=== PATIENT | male | born 1995 | race Caucasian/White ===

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

== ENCOUNTER 2017-12-03 23:55 | Observation (INO) | payer BC ==
[2017-12-04 00:30] LABS: ABS Basophils 0.1 10^3/ul (0-0.2); ABS Eosinophils 1.2 10^3/ul (0-0.6); ABS Lymphocytes 2.7 10^3/ul (1.0-4.8); ABS Monocytes 0.8 10^3/ul (0-0.8); ABS Neutrophils 8.4 10^3/ul (1.5-7.7); ABS Nucleated RBC 0 10^3/ul; Eosinophil % 9.1 % (0-6); Hematocrit 51 % (42-52); Hemoglobin 17.3 g/dl (14.0-18.0); Lymphocyte % 20.3 % (25-47); Mean Corpuscular HGB Conc 34 g/dl (31-36); Mean Corpuscular Hemoglobin 29 pg (27-31); Mean Corpuscular Volume 85 fL (80-94); Mean Platelet Volume 9 um3 (7.4-10.4); Nucleated Red Blood Cells % 0.1; Platelet Count 329 10^3/ul (150-450); Red Blood Count 5.92 10^6/ul (4.0-5.4); Red Cell Distribution Width 13 % (10.5-15); White Blood Count 13.2 10^3/ul (3.5-10.8)
[2017-12-04 00:46] LABS: EGFR Non-African American 83.6 (>60)
[2017-12-04] MEDS ORDERED: Insulin REGULAR(*) 1 UNITS UNIT IV PUSH ONE (01:30)
[2017-12-04] MEDS ORDERED: NS 0.9% 1000 ML* 2,000 ML IV ONE (01:32)
[2017-12-04] MEDS ORDERED: Metoclopramide IV* 5 MG/ML 2 ML VIAL IV SLOW PU ONE (01:37)
[2017-12-04] MEDS ORDERED: Morphine INJ* 4 MG/ML 1 ML SYRINGE (NEW SYRINGE VERSION) IV ONE (01:43)
[2017-12-04] MEDS ORDERED: Insulin REGULAR IVPB 100 UNITS/100 ML UNIT IVPB SCH ×3 (02:00→14:00)
[2017-12-04] MEDS ORDERED: D5W NS 0.9% 20Meq KCL 1000 ML* 1,000 ML IV SCH (02:45)
[2017-12-04 03:06] LABS: Urine Appearance Clear; Urine Blood Negative (Negative); Urine Color Yellow; Urine Ketones 2+ (Negative); Urine Protein Negative (Negative); Urine Specific Gravity 1.027 (1.010-1.030); Urine Urobilinogen Negative (Negative)
[2017-12-04] MEDS ORDERED: Iodixanol* (CONTRAST) 320 MG/ML 100 ML SDV IV ONE (03:17)
--- NOTE | 2017-12-04 05:31 | ED ---
Afsaneh Goldberg Thomas, scribed for Mary Almanza MD on 12/04/17 at 0149 . Complex/Multi-Sys Presentation - HPI Summary HPI Summary: The patient is a 22 year old male with a history of diabetes complaining of elevated blood sugar, nausea, vomiting, and RLQ abdominal pain that began yesterday at 20:00. He feels feverish. He is on sliding scale insulin. He was diagnosed with diabetes 10 years ago. - History Of Current Complaint Chief Complaint: EDAbdPain Time Seen by Provider: 12/04/17 01:32 Hx Obtained From: Patient Onset/Duration: Lasting Hours, Still Present Timing: Constant Severity Initially: Severe Location: Pain At: - RLQ Associated Signs And Symptoms: Positive: Abdominal Pain, Other - nausea, vomiting, RLQ pain, elevated blood sugar - Allergies/Home Medications Allergies/Adverse Reactions: Allergies Allergy/AdvReac Type Severity Reaction Status Date / Time Penicillins Allergy Rash Verified 12/04/17 00:01 PMH/Surg Hx/FS Hx/Imm Hx Endocrine/Hematology History: Reports: Hx Diabetes - TYPE I Sensory History: Denies: Hx Legally Blind EENT History: Denies: Hx Deafness Infectious Disease History: No Infectious Disease History: Denies: Traveled Outside the [place] in Last 30 Days - Family History Known Family History: Positive: Other - high cholesterol - dad Negative: Cardiac Disease, Hypertension - Social History Occupation: Student Alcohol Use: Rare Substance Use Type: Reports: None Smoking Status (MU): Never Smoked Tobacco Review of Systems Positive: Other - Patient feels feverish; Elevated blood glucose Positive: Abdominal Pain, Vomiting, Nausea All Other Systems Reviewed And Are Negative: Yes Physical Exam - Summary Physical Exam Summary: VITAL SIGNS: Reviewed. GENERAL: Patient is a well-developed and nourished male who is lying comfortable in the stretcher. Patient is not in any acute respiratory distress. HEAD AND FACE: No signs of trauma. No ecchymosis, hematomas or skull depressions. No sinus tenderness. EYES: PERRLA, EOMI x 2, No injected conjunctiva, no nystagmus. EARS: Hearing grossly intact. Ear canals and tympanic membranes are within normal limits. MOUTH: Oropharynx within normal limits. NECK: Supple, trachea is midline, no adenopathy, no JVD, no carotid bruit, no c- spine tenderness, neck with full ROM. CHEST: Symmetric, no tenderness at palpation LUNGS: Clear to auscultation bilaterally. No wheezing or crackles. CVS: Regular rate and rhythm, S1 and S2 present, no murmurs or gallops appreciated. ABDOMEN: Soft. Diffuse abdominal tenderness, especially in RUQ. No signs of distention. No rebound no guarding, and no masses palpated. Bowel sounds are normal. EXTREMITIES: FROM in all major joints, no edema, no cyanosis or clubbing. NEURO: Alert and oriented x 3. No acute neurological deficits. Speech is normal and follows commands. SKIN: Dry and warm Triage Information Reviewed: Yes Vital Signs On Initial Exam: Initial Vitals Temp Pulse Resp BP Pulse Ox 97.8 F 106 16 130/86 97 12/03/17 23:57 12/03/17 23:57 12/03/17 23:57 12/03/17 23:57 12/03/17 23:57 Vital Signs Reviewed: Yes Diagnostics - Vital Signs Vital Signs Temp Pulse Resp BP Pulse Ox 12/03/17 23:57 97.8 F 106 16 130/86 97 - Laboratory Lab Results: Lab Results 12/04/17 12/04/17 12/04/17 Range/Units 00:15 00:15 01:27 WBC 13.2 H (3.5-10.8) 10^3/ul RBC 5.92 H (4.0-5.4) 10^6/ul Hgb 17.3 (14.0-18.0) g/dl Hct 51 (42-52) % MCV 85 (80-94) fL MCH 29 (27-31) pg MCHC 34 (31-36) g/dl RDW 13 (10.5-15) % Plt Count 329 (150-450) 10^3/ul MPV 9 (7.4-10.4) um3 Neut % (Auto) 63.9 (38-83) % Lymph % (Auto) 20.3 L (25-47) % Freestone % (Auto) 6.2 (0-7) % Eos % (Auto) 9.1 H (0-6) % Baso % (Auto) 0.5 (0-2) % Absolute Neuts (auto) 8.4 H (1.5-7.7) 10^3/ul Absolute Lymphs (auto) 2.7 (1.0-4.8) 10^3/ul Absolute Monos (auto) 0.8 (0-0.8) 10^3/ul Absolute Eos (auto) 1.2 H (0-0.6) 10^3/ul Absolute Basos (auto) 0.1 (0-0.2) 10^3/ul Absolute Nucleated RBC 0 10^3/ul Nucleated RBC % 0.1 VBG pH 7.21 L (7.33-7.43) VBG pCO2 39 L (41-51) mmHg VBG pO2 20 L (35-45) mmHg VBG HCO3 13.7 L (24-28) mmol/L VBG O2 Saturation 38.8 L (70-80) % VBG Base Excess -11.6 L (0-4) Sodium 130 L (133-145) mmol/L Potassium 4.6 (3.5-5.0) mmol/L Chloride 93 L (101-111) mmol/L Carbon Dioxide 13 L* (22-32) mmol/L Anion Gap 24 H (2-11) mmol/L BUN 21 (6-24) mg/dL Creatinine 1.12 (0.67-1.17) mg/dL Est GFR ( Amer) 107.5 (>60) Est GFR (Non-Af Amer) 83.6 (>60) BUN/Creatinine Ratio 18.8 (8-20) Glucose 330 H (70-100) mg/dL Calcium 10.4 H (8.6-10.3) mg/dL Total Bilirubin 1.00 (0.2-1.0) mg/dL AST 18 (13-39) U/L ALT 12 (7-52) U/L Alkaline Phosphatase 223 H (34-104) U/L C-Reactive Protein 4.04 (< 5.00) mg/L Total Protein 8.7 (6.4-8.9) g/dL Albumin 5.1 (3.2-5.2) g/dL Globulin 3.6 (2-4) g/dL Albumin/Globulin Ratio 1.4 (1-3) Lipase < 10 L (11.0-82.0) U/L Result Diagrams: 12/04/17 00:15 12/04/17 00:15 Lab Statement: Any lab studies that have been ordered have been reviewed, and results considered in the medical decision making process. - Radiology CXR Xray Interpretation: No Acute Changes - No acute process. Pending final report. Radiology Interpretation Completed By: ED Physician - CT CT Abd/Pel CT Interpretation: No Acute Changes - There is no bowel obstruction, free air, or free fluid. Negative for diverticulitis or colitis. Normal appendix visualized. Normal kidneys urinary tracts and urinary bladder. Liver is somewhat fatty. Normal spleen. Normal pancreas. Normal adrenal glands. No obvious gallbladder abnormalities. Osseous structures are intact. No acute abnormalities are identified. Dr. Almanza has reviewed this report. CT Interpretation Completed By: Radiologist Re-Evaluation - Re-Evaluation First Eval Re-Evaluation Time: 05:23 Comment: Results discussed. Patient will be admitted. Complex Multi-Symp Course/Dx Assessment/Plan: The patient is a 22 year old male with a history of diabetes complaining of elevated blood sugar, nausea, vomiting, and RLQ abdominal pain that began yesterday at 20:00. In the ED course the patient was given insulin, Reglan, morphine, and IV fluids. Bloodwork and urinalysis were obtained. CXR shows no acute process. CT Abd/Pel shows There is no bowel obstruction, free air, or free fluid. Negative for diverticulitis or colitis. Normal appendix visualized. Normal kidneys urinary tracts and urinary bladder. Liver is somewhat fatty. Normal spleen. Normal pancreas. Normal adrenal glands. No obvious gallbladder abnormalities. Osseous structures are intact. No acute abnormalities are identified. The patient is diagnosed with DKA. Dr. Koo will admit the patient. - Diagnoses Provider Diagnoses: DKA (diabetic ketoacidoses) - Physician Notifications Discussed Care Of Patient With: Laila Koo Time Discussed With Above Provider: 05:24 Instructed by Provider To: Admit As Inpatient Discharge - Discharge Plan Condition: Fair Disposition: ADMITTED TO [facility] Referrals: [facility] - Joshua ZARATE [Primary Care Provider] - The documentation as recorded by the Afsaneh baraohna Thomas accurately reflects the service I personally performed and the decisions made by wa, Mary Almanza MD.
[2017-12-04 05:48] LABS: EGFR Non-African American 118.1 (>60)
[2017-12-04] MEDS ORDERED: Docusate CAP* 100 MG PO PRN (05:58)
[2017-12-04] MEDS ORDERED: Ondansetron INJ* 2 MG/ML VIAL IV PRN (05:58)
[2017-12-04] MEDS ORDERED: Acetaminophen TAB* 325 MG PO PRN (05:58)
[2017-12-04] MEDS ORDERED: Senna TAB PO PRN (05:58)
[2017-12-04] MEDS ORDERED: Al Hydrox/Mg Hydrox/Simet LIQ* 30 ML UDC PO PRN (05:58)
[2017-12-04] MEDS ORDERED: D5W 1/2 NS KCl 20 Meq 1000 ML* 1,000 ML IV SCH ×4 (07:00→12:16)
--- NOTE | 2017-12-04 08:07 | PN ---
Hospitalist Progress Note Date of Service: 12/04/17 I have seen and examined Mr. Quevedo and will assume his care today. He is feeling much better, abdominal pain is improving, no nausea. On exam, he has been afebrile, normotensive, HR in the 70s Sleepy but arouses to voice and answers my questions appropriately. dry mucosa , no lesions or erythema. no cervical adenopathy RRR, no murmurs or rubs lungs clear b/l, no wheezes or rhonchi abdomen soft, mildly tender in suprapubic area to deep palpation, no guarding or rebound no rashes or joint swelling or erythema DKA on insulin drip at 2U/hr and D51/2NS at 175/hr AG still open at last BMP; repeat at 930am and 130pm today. Once closed x 2, will allow diet and start lantus, overlap for 30 minutes, turn drip off and repeat BMP 4 hours later. (at home he take toujeo 42U daily in the morning and novolog correction at 1U/12 carbs or 1U for every 50 points above 100). His diabetes is managed by a pediatric safe technician in [place], [place]. Etiology remains unclear; check EKG and urine drug screen today. Will follow closely. Continue ICU level of care.
--- NOTE | 2017-12-04 08:20 | RAD ---
Indication: Shortness of breath. Single frontal view of the chest performed at 0158 hours was reviewed. No prior study is available for comparison. No mediastinal shift is noted. Heart is of normal size and configuration. Lung walker appear clear. IMPRESSION: NO ACTIVE CARDIOPULMONARY DISEASE IS NOTED.
--- NOTE | 2017-12-04 08:38 | RAD ---
CLINICAL HISTORY: Right lower quadrant pain accompanied with nausea and vomiting COMPARISON: None TECHNIQUE: Contrast enhanced CT examination of the abdomen and pelvis from the lung bases through the initial tuberosities. The patient received 91 mL Visipaque 320 intravenously prior to imaging.The patient received oral contrast as well prior to imaging. FINDINGS: VISUALIZED LUNG BASES: The visualized lung bases are grossly clear. There is no pleural effusion. ABDOMEN AND PELVIS: The liver, spleen, pancreas and adrenal glands are grossly normal in appearance. The gallbladder is normal. The kidneys are normal in appearance without focal mass, calcification or signs of hydronephrosis. The urinary bladder measures 11.2 x 8.3 x 10.5 cm yielding an approximate volume of 790 mL. The oral contrast has progressed as far as the sigmoid colon. The small and large bowel are not distended. The appendix is identified in the right lower quadrant with oral contrast in the proximal portion (coronal image 34). More distally there is no contrast in the lumen of the 7 mm diameter appendix (coronal image 35). There is no definite periappendiceal stranding or surrounding fluid. The small bowel and portions of the colon exhibit air-fluid levels without definite wall thickening. There is no retroperitoneal lymphadenopathy. Mesenteric root lymph nodes appear to be somewhat concentrated in the right lower quadrant (for example coronal image 31), but none are pathologically enlarged. At the left hemiscrotum there are hyperattenuating serpiginous appearing structures possibly representing scrotal varices (axial image 96). The abdominal aorta and iliac arteries are normal in course and diameter. There are no sinister bone lesions. IMPRESSION: 1. Contrast fills only the proximal portion of the cecal appendix, but there is no pathologic dilatation or definite periappendiceal inflammatory change to indicate acute appendicitis. 2. Air-fluid levels in the small bowel could be seen in the setting of diarrheal illness. 3. Incidentally noted is minimally enlarged urinary bladder yielding an approximate volume of 790 mL. Please correlate to any clinical signs or symptoms of either urinary outlet obstruction or insensate urinary bladder. 4. Questionable left scrotal varicoceles. Please correlate to physical examination or any scrotal/testicular clinical symptoms.
[2017-12-04 09:57] LABS: EGFR Non-African American 139.2 (>60)
[2017-12-04 13:37] LABS: EGFR Non-African American 143.8 (>60)
[2017-12-04] MEDS ORDERED: Insulin NPH(*) 1 UNITS UNIT SUBCUT ONE (13:54)
--- NOTE | 2017-12-04 15:38 | HP ---
CC: [facility] HISTORY AND PHYSICAL: DATE OF ADMISSION: 12/04/17 TIME OF EVALUATION: 0300 PRIMARY CARE PHYSICIAN: [facility]. CHIEF COMPLAINT: Nausea, vomiting, and inability to take p.o. HISTORY OF PRESENT ILLNESS: This is a 22-year-old male with a past medical history of type 1 diabetes, who presented to the emergency room with persistent nausea, vomiting, and inability to tolerate any p.o. He states he has been vomiting since 1 p.m. on 12/03/17. He states that anything he tries to eat or drink, he is not able to keep down and he developed lower abdominal pain. He states his sugars were high in 200s to mid 200s and he was correcting with his NovoLog. However, his sugars just did not seem to be coming down. He denied any chest pain or shortness of breath. No fevers or chills. No headache. No sick contacts. No diarrhea. Since arrival to the emergency room, his abdominal pain has improved. He did notify his parents that he is here. Otherwise, review of systems is negative in the emergency room. The patient had labs and imaging and was found to be in DKA. He was given 2 liters of normal saline, started on insulin drip, transitioned over to D5 half normal saline. He was also given Reglan and morphine, and was referred to the hospitalist service for further evaluation. PAST MEDICAL HISTORY: 1. Type 1 diabetes. 2. Hyperlipidemia. MEDICATIONS: 1. He is on Toujeo 50 units in the morning, depending what his sugars are he adjusts this. 2. NovoLog sliding scale. 3. Lipitor, unclear on the dose. 4. Vitamin D daily. ALLERGIES: PENICILLIN. FAMILY HISTORY: Noncontributory. His parents are alive and healthy. His father has hyperlipidemia. 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 No tobacco use. Occasional alcohol use. Rare marijuana use. He is originally from [place]. His healthcare proxy are his parents. CODE STATUS: Full code. REVIEW OF SYSTEMS: A 14-point review of systems are as mentioned in the HPI, otherwise negative. PHYSICAL EXAMINATION GENERAL: Mildly ill appearing, in no acute distress. VITAL SIGNS: Temp 97.8, pulse rate 80, respiratory rate 16, oxygen saturation 97% on room air, and blood pressure 127/60. HEENT: Head is normocephalic. Pupils are equal and reactive. Anicteric. Conjunctivae are mildly injected. Oropharynx: Mucous membranes are dry. NECK: Supple. RESPIRATORY: Clear to auscultation. No wheezing, rhonchi, or rales. CARDIAC: Regular rate and rhythm. Soft systolic murmur heard throughout. ABDOMEN: Hypoactive bowel sounds, soft, some mild distention. No tenderness. No rebound or guarding. EXTREMITIES: No clubbing, cyanosis, or edema. NEUROLOGIC: Alert and oriented x3. No gross focal neurologic deficits. LABORATORY DATA: White count 13.2, hemoglobin 17.3, hematocrit 51, and platelets 329. Blood gas: pH went from 7.21 to 7.29. BMP initially with sodium of 138, potassium 4.6, chloride 93, bicarb 13, anion gap of 24, glucose 330. Repeat BMP: Sodium 130, potassium 4.2, chloride 101, bicarb 16, anion gap of 13, BUN 15, creatinine 0.83. His lipase is less than 10. His UA shows +2 ketones, +3 glucose. Influenza and group A strep are negative. RADIOGRAPHIC IMAGING: Abdominal and pelvis CAT scan was unremarkable. Chest x - ray, wet read, unremarkable. ASSESSMENT: This is a 22-year-old male with past medical history of type 1 diabetes, who presents to the emergency room with intractable nausea, vomiting, and abdominal pain, found to be in diabetic ketoacidosis. 1. Diabetic ketoacidosis. Assessment: Appears to be mild and his gap is starting to close. His acidosis is improving. However, he still has mild acidosis with an anion gap. It is possible the etiology is gastroenteritis contributing to his diabetic ketoacidosis. No signs of bacterial infection, with no white count, no fever, and unremarkable CAT scan. Plan: We will admit him to the ICU. Continue him on his insulin drip. We will change his fluids to D5 half normal saline, check his glucose q.1 hour, repeat a BMP in 4 hours, and anticipate transitioning back onto his subcutaneous insulin this morning and then discharge later today. 2. Fluids, electrolytes, and nutrition: We will keep him n.p.o. until his gap is closed, with IV fluids. 3. DVT prophylaxis: The patient scores 0, low risk. We will encourage ambulation. 4. Code status: Full code. PATIENT TIME: Greater than 45 minutes were spent doing history and physical, more than half the time spent in direct patient contact. [id number]/[facility] #: [id number] KIANNA
[2017-12-04] MEDS ORDERED: Dextrose 50% Syringe 50 ML* 25 GM/50 ML SYRINGE IV PUSH PRN (18:41)
[2017-12-04] MEDS: Insulin LISPRO* 1 UNITS UNIT SUBCUT SCH (20:50)
[2017-12-05] MEDS ORDERED: Insulin NPH(*) 1 UNITS UNIT SUBCUT ONE (02:00)
[2017-12-05 08:56] LABS: EGFR Non-African American 123.2 (>60)
[2017-12-05] MEDS ORDERED: Dextrose 50% Syringe 50 ML* 25 GM/50 ML SYRINGE IV PUSH PRN ×2 (09:35→09:40)
[2017-12-05] MEDS ORDERED: Insulin LISPRO* 1 UNITS UNIT SUBCUT ONE (09:40)
[2017-12-05] MEDS ORDERED: Insulin GLARGINE(*) 1 UNITS UNIT SUBCUT ONE (09:46)
[2017-12-05] MEDS: Insulin LISPRO* 1 UNITS UNIT SUBCUT SCH ×2 (09:56→12:18)
[2017-12-05] MEDS ORDERED: Insulin LISPRO* 1 UNITS UNIT SUBCUT SCH (11:30)
[2017-12-05 11:31] VITALS: BP 95/67
--- NOTE | 2017-12-06 08:43 | DS ---
CC: [facility]; Dr. Ramirez * DISCHARGE SUMMARY: DATE OF ADMISSION: 12/04/17 DATE OF DISCHARGE: 12/05/17 PRINCIPAL DISCHARGE DIAGNOSIS: Diabetic ketoacidosis. SECONDARY DISCHARGE DIAGNOSES: 1. Gastroenteritis. 2. Type 1 diabetes. PHYSICAL EXAMINATION: At the time of discharge, temperature 98.2, heart rate 69 , respiratory rate 16, pulse ox 99% on room air, blood pressure 95/67. General : Alert, well-appearing young man, in no distress. HEENT: Pupils equal, round , and reactive to light. No nystagmus. Moist mucosa. No pharyngeal exudates or erythema. No mucosal lesions. Neck: No cervical lymphadenopathy. Chest: Regular rate and rhythm. No murmurs. PMI nondisplaced. Lungs: Clear bilaterally. Abdomen: Soft, nontender, nondistended. No guarding, no rebound. No CVA tenderness. Extremities: No rashes. No neuropathy. No ulcers. Strength 5+ throughout. HOSPITAL COURSE BY PROBLEM: DKA likely due to viral gastroenteritis and missing a few dose of Toujeo. Mr. Quevedo had reported some GI upset for several days prior to admission. It is unclear if this is the cause or the result of DKA; however, he did report to his nurse that he may have missed a few doses of his insulin; however, he denied that to me. Other infectious etiologies were ruled out with a negative UA, negative chest x-ray, negative influenza swab, negative rapid strep, and negative blood cultures. An EKG did show some concerns for acute pericarditis with ST elevations in several areas; however, he did not have symptoms consistent with pericarditis, so this was unlikely to be the cause. A troponin was negative, ruling out acute coronary syndrome as the cause, so ultimately a viral syndrome in combination with missed doses of insulin is the most likely cause of this episode of DKA. This is his first ever DKA admission; however, he does report poor control of his diabetes recently. He was admitted to the intensive care unit for an insulin drip, which he responded well to. The insulin drip was overlapped with NPH after his anion gap closed and he tolerated a full diet. He was transferred to the floor and transitioned to Lantus at 80% of his Toujeo dose and at the time of discharge, I am increasing his Toujeo from 42 units daily to 45 units daily. 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 I am requesting a followup with Dr. Ramirez and also a followup with [facility] in the meantime. In addition to his Toujeo 45 units daily, he takes NovoLog at mealtimes 1 unit for every 50 above 100 points and he will resume this as usual. [id number]/[facility] #: [id number] [facility]
== END 2017-12-05 13:15 | disposition home or self-care (01) ==
LOC: ED 23:55 → ICU 12-04 05:58 → INTOOBSV 12-04 05:58 → MEDTELE 12-04 16:45
PROVIDERS: ADMIT Pediatrics; ATTEND Internal Medicine
DX: E10.10 Type 1 diabetes mellitus with ketoacidosis without coma (principal); K52.9 Noninfective gastroenteritis and colitis, unspecified; R10.31 Right lower quadrant pain; R11.2 Nausea with vomiting, unspecified; Z79.4 Long term (current) use of insulin
CPT/HCPCS: 36415; 71045; 74177; 80048; 80053; 80307; 81003; 82803; 82947; 83036; 83690; 84484; 85025; 86140; 87040; 87502; 87641; 87651; 93005; 99284; G0378; J1815; Q9967

== ENCOUNTER 2019-07-24 13:56 | Emergency (ER) | payer BC ==
--- NOTE | 2019-07-24 14:32 | ED ---
Neurological HPI - HPI Summary HPI Summary: This patient is a 23 year old M with a history of IDDM and HLD BIBA to ED via EMS with a chief complaint of seizure at 1305. Patient experienced a witnessed seizure for 2-3 minutes. Per observer (patient's roommate), patient had a yelp, started gasping for air, and then fell under the bed and started having full body shapes. Patient then fell unconscious and was unresponsive for a few minutes. Patients blood sugar 10 minutes after the seizure started was 128. Patient's roommate called EMS. EMS did not provide treatment to the patient. Patient arrives post-ictal to the ED. Patient reports having diabetic seizures in the past, but those times his blood sugar was in the 50-60s. He does not have a diagnosis of epilepsy. Patient denies long travel recently or prolonged immobilization. Patient smokes marijuana and uses alcohol, but only occasionally. He denies ever trying synthetic marijuana and has not used marijuana in the past few days. Patient denies consuming any drugs or any unknown substances in the past two days. The patient rates the pain 0/10 in severity. Symptoms aggravated by nothing. Symptoms alleviated by nothing. Patient reports headache and abrasion to tongue. Patient denies fever, runny nose, sore throat, chest pain, shortness of breath, nausea, vomiting, diarrhea, muscle pain, joint pain, calf pain, calf swelling. - History of Current Complaint Chief Complaint: EDSeizure Stated Complaint: SEIZURE PER EMS Time Seen by Provider: 07/24/19 13:58 Hx Obtained From: Patient, Other: - Friend/roommate Onset/Duration: Sudden Onset, Started hours ago - At 1305, Resolved Timing: Sudden Onset - 2-3 minute episode Onset Severity: Mild Current Severity: None Seizure Severity: Mild Number of Seizures: 1 Pain Intensity: 0 Pain Scale Used: 0-10 Numeric Seizure Character: Generalized, Total-Clonic Aggravating: Nothing Alleviating: Nothing Associated Signs and Symptoms: Positive: Negative - fever, runny nose, sore throat, chest pain, shortness of breath, nausea, vomiting, diarrhea, muscle pain , joint pain, calf pain, calf swelling, Headache, Seizure Related Hx: Seizure - Hypoglycemic seizure - Additional Pertinent History Primary Care Physician: TODD - Allergy/Home Medications Allergies/Adverse Reactions: Allergies Allergy/AdvReac Type Severity Reaction Status Date / Time Penicillins Allergy Rash Verified 12/04/17 00:01 PMH/Surg Hx/FS Hx/Imm Hx Endocrine/Hematology History: Reports: Hx Diabetes - TYPE I Cardiovascular History: Reports: Hx Hypercholesterolemia Sensory History: Denies: Hx Contacts or Glasses, Hx Legally Blind, Hx Deafness, Hx Hearing Aid Opthamlomology History: Denies: Hx Contacts or Glasses, Hx Legally Blind - Surgical History Surgery Procedure, Year, and Place: Denies Infectious Disease History: No Infectious Disease History: Denies: Traveled Outside the [place] in Last 30 Days - Family History Known Family History: Positive: Other - high cholesterol - dad Negative: Cardiac Disease, Hypertension - Social History Alcohol Use: Occasionally Hx Substance Use: Yes Substance Use Type: Reports: Marijuana Substance Use Comment - Amount & Last Used: occasionally Hx Tobacco Use: No Smoking Status (MU): Never Smoked Tobacco Review of Systems Negative: Fever Negative: Sore Throat, Nasal Discharge Negative: Chest Pain Negative: Shortness Of Breath Negative: Vomiting, Diarrhea, Nausea Musculoskeletal: Negative - Calf pain, calf swelling Negative: Arthralgia Positive: Headache All Other Systems Reviewed And Are Negative: Yes Physical Exam - Summary Physical Exam Summary: Constitutional: Well-developed, Well-nourished, Alert. (-) Distressed Skin: Warm, Dry HENT: subcentimeter superficial abrasion to the lateral of the aspect of the tongue on the left side Eyes: Conjunctiva normal Neck: Musculoskeletal ROM normal neck. (-) JVD, (-) Stridor, (-) Tracheal deviation Cardio: Rhythm regular, rate normal, Heart sounds normal; Intact distal pulses; The pedal pulses are 2+ and symmetric. Radial pulses are 2+ and symmetric. Pulmonary/Chest wall: Effort normal. (-) Respiratory distress, (-) Wheezes, (-) Rales Abd: Soft, (-) tenderness, (-) Distension, (-) Guarding, (-) Rebound Musculoskeletal: (-) Edema Neuro: Alert, Oriented x3 GCS: 15 Psych: Mood and affect Normal Triage Information Reviewed: Yes Vital Signs On Initial Exam: Initial Vitals Temp Pulse Resp BP Pulse Ox 99.1 F 93 14 144/76 97 07/24/19 14:04 07/24/19 14:04 07/24/19 14:04 07/24/19 14:04 07/24/19 14:04 Vital Signs Reviewed: Yes Procedures - Sedation Patient Received Moderate/Deep Sedation with Procedure: No Diagnostics - Vital Signs Vital Signs Temp Pulse Resp BP Pulse Ox 07/24/19 14:04 99.1 F 93 14 144/76 97 - Laboratory Lab Results: Lab Results 07/24/19 Range/Units 14:11 POC Glucose (mg/dL) 132 H (70-100) mg/dL Result Diagrams: 07/24/19 14:46 07/24/19 14:46 Lab Statement: Any lab studies that have been ordered have been reviewed, and results considered in the medical decision making process. - CT Brain CT Interpretation Completed By: Radiologist Summary of CT Findings: No acute intracranial abnormality. Dr. Enriquez has reviewed this radiology report. Re-Evaluation - Re-Evaluation First Eval Re-Evaluation Time: 15:08 Change: Worse Comment: Patient reports feeling nausea, photophobia, and worsening TUBBS now, so I will give Zofran and turn down man the lights. Second Eval Re-Evaluation Time: 16:55 Comment: Discussed results with patient and patients father over the phone. Third Eval Re-Evaluation Time: 18:07 Change: Improved Comment: Patient reports feeling better and would prefer to follow-up with out- patient, which I agree with. Course/Dx - Course Course Of Treatment: This patient is a 23 year old M with a history of IDDM and HLD BIBA to ED via EMS with a chief complaint of seizure at 1305. POC glucose 132 in the ED room. In the ED course, patient received lactated ringers, Zofran , Pepcid, Benadryl, Reglan. Venous blood gas revealed pCO2 39, pO2 67, O2 saturation 95.1. Blood work revealed BUN/creatinine ratio 20.8, glucose 123, magnesium 1.8, direct bilirubin 0.20, lipase <10. UA drug screen revealed presumptive positive cannabinoids. CT brain revealed No acute intracranial abnormality. Discussed patient case with Dr. Boone, neurologist, who states that the patient's photophobia, nausea, other symptoms, etc could be related to post-ictal state. He states the brain CT does not suggest the need for an LP. He recommends the patient be discharged to follow-up as outpatient for EEG and MRI. After treatment, patient reports feeling better. Discussed results with patient. Patient will be discharged home with dx of seizure. Patient understands and agrees with this plan. - Diagnoses Provider Diagnoses: Seizures - Physician Notifications Discussed Care Of Patient With: Ryne Boone Time Discussed With Above Provider: 17:10 Instructed by Provider To: Other - Discussed patient case with Dr. Boone, neurologist, who states that the patient's photophobia, nausea, other symptoms, etc could be related to post-ictal state. He states the brain CT does not suggest the need for an LP. He recommends the patient be discharged to follow- up as outpatient for EEG and MRI. Discharge ED - Sign-Out/Discharge Documenting (check all that apply): Patient Departure - Discharge - Discharge Plan Condition: Stable Disposition: HOME Patient Education Materials: New-Onset Seizure in Adults (ED) Referrals: Cruz Ramirez MD [Primary Care Provider] - - Billing Disposition and Condition Condition: STABLE Disposition: Home - Attestation Statements Document Initiated by Nikhilibe: Yes Documenting Scribe: Jt Watson Provider For Whom Ruth is Documenting (Include Credential): Ryne Enriquez MD Scribe Attestation: IJt, scribed for Ryne Enriquez MD on 07/24/19 at 1911. Scribe Documentation Reviewed: Yes Provider Attestation: The documentation as recorded by the Jt barahona accurately reflects the service I personally performed and the decisions made by me, Ryne Enriquez MD Status of Scribe Document: Viewed
[2019-07-24] MEDS ORDERED: Lactated Ringers 1000 ML Bag* 1,000 ML IV ONE (14:34)
[2019-07-24 15:01] LABS: ABS Eosinophils 0.1 10^3/ul (0-0.6); ABS Lymphocytes 1.2 10^3/ul (1.0-4.8); ABS Monocytes 0.4 10^3/ul (0-0.8); ABS Neutrophils 5.7 10^3/ul (1.5-7.7); Eosinophil % 1.6 %; Hematocrit 46 % (42-52); Hemoglobin 16.1 g/dL (14.0-18.0); Lymphocyte % 15.5 %; Mean Corpuscular HGB Conc 35 g/dL (31-36); Mean Corpuscular Hemoglobin 29 pg (27-31); Mean Corpuscular Volume 84 fL (80-94); Mean Platelet Volume 7.9 fL (7.4-10.4); Platelet Count 302 10^3/uL (150-450); Red Blood Count 5.47 10^6 /uL (4.18-5.48); Red Cell Distribution Width 13 % (10-15); White Blood Count 7.5 10^3/uL (3.5-10.8)
[2019-07-24] MEDS ORDERED: Ondansetron INJ* 2 MG/ML VIAL IV ONE (15:09)
[2019-07-24] MEDS ORDERED: Famotidine IV* 10 MG/ML 2 ML (20 mg) IV SLOW PU ONE (15:09)
[2019-07-24 15:16] LABS: ALT 13 U/L (7-52); AST 18 U/L (13-39); Albumin 4.5 g/dL (3.2-5.2); Albumin/Globulin Ratio 1.6 (1-3); Alkaline Phosphatase 96 U/L (34-104); Anion Gap 8 mmol/L (2-11); BUN/Creatinine Ratio 20.8 (8-20); Blood Urea Nitrogen 16 mg/dL (6-24); CO2 Carbon Dioxide 25 mmol/L (22-32); Calcium 9.8 mg/dL (8.6-10.3); Chloride 104 mmol/L (101-111); EGFR African American 154.3 (>60); EGFR Non-African American 127.5 (>60); Globulin 2.8 g/dL (2-4); Glucose 123 mg/dL (70-100); Indirect Bilirubin 0.8 mg/dL (0.3-1.0); Magnesium 1.8 mg/dL (1.9-2.7); Potassium 4.1 mmol/L (3.5-5.0); Sodium 137 mmol/L (135-145); Total Protein 7.3 g/dL (6.4-8.9)
[2019-07-24 15:18] LABS: Urine Benzodiazepine Screen None Detected (None Detect); Urine Opiates Screen None Detected (None Detect)
[2019-07-24 15:33] LABS: TSH (Thyroid Stimulating Horm) 1.21 mcIU/mL (0.34-5.60)
[2019-07-24] MEDS ORDERED: diPHENhydraMINE IV* 50 MG/ML 1 ml VIAL (BENADRYL) IV ONE (15:54)
[2019-07-24] MEDS ORDERED: Metoclopramide IV* 5 MG/ML 2 ML VIAL IV SLOW PU ONE (15:54)
[2019-07-24] MEDS ORDERED: Magnesium Sulfate 2 GM IV* 2 GM/50 ML BAG IVPB ONE (15:54)
[2019-07-24 18:18] VITALS: BP 113/77
== END 2019-07-24 18:17 | disposition home or self-care (01) ==
LOC: ED 13:56
DX: R56.9 Unspecified convulsions (principal); E10.9 Type 1 diabetes mellitus without complications; E78.00 Pure hypercholesterolemia, unspecified; Z88.0 Allergy status to penicillin
CPT/HCPCS: 36415; 70450; 80048; 80076; 80307; 82010; 82803; 83690; 83735; 84443; 85025; 96361; 96374; 96375; 99283; J1200; J2405; J2765; J3475